=== PATIENT | female | born 1975 | race Caucasian/White ===

== ENCOUNTER 2025-01-22 15:29 | Outpatient (AMB) | payer OTHER, SELFPAY ==
--- NOTE | 2025-01-22 15:52 | MHC.OFFVIS ---
Intake Visit Reasons: 6m migraine [facility] Allergy (Unknown, Verified 01/22/25 15:56) Unknown Medication List - Last Reconciled 01/22/25 by Dory Wilson CNP albuterol sulfate mg inhalation Q4H PRN atorvastatin 10 mg PO DAILY budesonide-formoterol 160-4.5 mcg/actuation (Symbicort) 2 puffs inhalation BID crisaborole 2% (Eucrisa) topical BID PRN epinephrine IM levothyroxine mcg PO meclizine 25 mg PO DAILY mometasone 200 mcg/actuation (Asmanex HFA) 2 puffs inhalation BID montelukast 10 mg PO BEDTIME sumatriptan succinate mg PO topiramate 50 mg PO DAILY HPI Comments Details: 49-year-old [place] woman with asthma and migraine. She was doing okay. Migraines happened few times a month. Sumatriptan as needed usually helped. She had bad migraine earlier this week with visual aura and had to stay home from work. Triggers included change in barometric pressure. Sleep was not so good. [facility] Medical History (Updated 01/22/25 @ 15:57 by Dory Wilson CNP) Raynauds syndrome Hypothyroidism Eczema Asthma Review of Systems Const Denies chills, Denies daytime sleepiness, Reports difficulty sleeping, Denies fatigue, Denies fever(s), Denies frequent falls, Reports headache(s), Denies increased appetite, Denies poor appetite, Denies snoring, Denies weakness, Denies weight gain and Denies weight loss Eyes Denies loss of vision ENT Denies vertigo, Denies dizziness and Reports headache(s) Card Denies chest pain at rest, Denies chest pain with activity, Denies syncope, Denies leg edema and Denies palpitations Resp Denies snoring GI Denies constipation, Denies heartburn, Denies diarrhea and Denies nausea Denies urinary frequency, Denies urinary incontinence and Denies urinary urgency Musc Denies abnormal gait, Denies numbness and Denies tingling Skin/Breast Denies dry skin and Denies rash Neuro Denies abnormal gait, Denies vertigo, Denies dizziness, Denies syncope, Denies frequent falls, Reports headache(s), Denies lack of coordination, Denies loss of vision, Denies memory loss, Denies numbness, Denies restless legs, Denies seizure-like activity, Denies tingling, Denies paresthesias, Denies tremor(s) and Denies weakness Psych Denies anxiety, Denies depression, Denies auditory hallucinations, Denies memory loss, Denies visual hallucinations and Denies suicidal ideation Endo Denies fatigue and Denies palpitations Physical Exam Const Other: General Appearance:? normal, in no acute distress. Skin:? no rashes, no significant birthmarks. Heart:? S1, S2 normal, no murmurs. Lungs:? clear anteriorly and posteriorly. Extremities:? no edema. Psych:? alert, oriented, cognitive function intact, cooperative with exam. Neuro Other: Mental Status:?Normal attention, orientation, memory and affect.? Cranial Nerves:?Pupils are equal, round and reactive to light. External occular muscles are intact. Visual donato are full. Face is symmetrical. Facial sensations are normal. Tongue is midline. Palate elevates symmetrically. Shoulder shrugging is normal. Hearing to bedside conversation is normal. Sensory Exam:?....? Coordination:?No ataxia,?no titubation.? Gait Exam: Within normal limits. Extrapyramidal System:?No tremor, rigidity with normal facial expressions.? Pronator Drift:?Not present.? Involuntary Movements:?No tremors seen.? Speech:?Normal.? Assessment & Plan Assessment & Plan (1) Migraine with aura: Code(s): G43.109 - Migraine with aura, not intractable, without status migrainosus Category: Medical Qualifiers: Status migrainosus presence: without status migrainosus Intractability: not intractable Qualified Code(s): G43.109 - Migraine with aura, not intractable, without status migrainosus Plan: Continue topiramate 50mg 1 tablet at bedtime. Continue sumatriptan 50mg 1 tablet as needed for migraine. Continue meclizine 25mg 1 tablet as needed for dizziness. (2) Hemiplegic migraine: Code(s): G43.409 - Hemiplegic migraine, not intractable, without status migrainosus Category: Medical Qualifiers: Status migrainosus presence: without status migrainosus Intractability: not intractable Qualified Code(s): G43.409 - Hemiplegic migraine, not intractable, without status migrainosus Plan . Medications: New topiramate 50 mg PO BEDTIME 90 tabs 1RF 90 days Coding Level of Care Code Est Pt Level 4 (67446) Diagnoses Migraine with aura and without status migrainosus, not intractable G43.109 Status migrainosus presence: without status migrainosus Intractability: not intractable Hemiplegic migraine without status migrainosus, not intractable G43.409 Status migrainosus presence: without status migrainosus Intractability: not intractable
--- OUTSIDE RECORDS SUMMARY | 2025-01-22 17:51 | XMS_ITS | Clinical Summary ---
Author Organization [facility] [address] [place] [address] [place] [address] [place] [address] Phone Care Team Providers Care Wool Washer Name Role Phone Tracy Goel MD Primary Care Provider [phone] Allergies Active Allergy Reactions Criticality Noted Date Comments Bee Sting Kit 08/09/2024 Diclofenac Dizziness,Unknown Medium 05/17/2022 Gold Sodium Thiomalate 06/22/2022 Patient was allergy tested Nickel Unknown 06/22/2022 Patient was allergy tested Other Runny nose 09/03/2009 Phenyleph/Diphenhyd-Phe nyleph Other 01/16/2010 Hyper and jittery Medications multivitamin (MULTIPLE VITAMINS ORAL) Take by mouth. Active topiramate (TOPAMAX) 50 mg tablet Take 1 tablet (50 mg total) by mouth 1 (one) time each day. 03/27/20 23 Active albuterol 1.25 mg/3 mL nebulizer solution INHALE 1 VIAL VIA NEBULIZER EVERY 4 HOURS NEEDED FOR SHORTNESS OF BREATH 08/09/19 23 Active fluticasone propionate (FLONASE) 50 mcg/actuation nasal spray 1 [employer] by Each Nare route 2 Times Daily. 07/06/19 23 Active SUMAtriptan (IMITREX) 50 mg tablet TAKE 1 TABLET BY MOUTH NEEDED FOR MIGRAINE, REPEAT DOSE ONCE AFTER 2 HOURS IF NEEDED 01/20/20 22 Active montelukast (SINGULAIR) 10 mg tablet TAKE 1 TABLET BY MOUTH AT BEDTIME 08/05/19 22 Active albuterol HFA (PROAIR HFA ; PROVENTIL HFA ; VENTOLIN HFA) 90 mcg/actuation inhaler Inhale 2 Puffs into the lungs every 4 hours as needed for Cough, Wheezing or Shortness of Breath. 06/22/19 Active EPINEPHrine (EpiPen 2-Fredrick) 0.3 mg/0.3 mL injection INJECT THE CONTENTS OF 1 SYRINGE DIRECTED 06/08/19 Active pimecrolimus (ELIDEL) 1 % cream : APPLY TOPICALLY TO THE AFFECTED AREA 1 TO 2 TIMES DAILY NEEDED FOR ECZEMA Class: Historic Active meclizine (ANTIVERT) 25 mg tablet Take 1 tablet (25 mg total) by mouth. 10/29/19 25 Active Symbicort 160-4.5 mcg/actuation inhaler 11/17/19 25 Active cetirizine (ZyrTEC) 5 mg chewable tablet Chew 1 (one) time each day. Active glucosamine-ch ondroitin 500-400 mg tablet Take 1 tablet by mouth 3 (three) times a day. Active naproxen (EC NAPROSYN) 375 mg EC tablet Take 220 mg by mouth 1 (one) time each day. Do not crush, chew, or split. Active Asmanex HFA 200 mcg/actuation HFA aerosol inhaler inhaler 11/19/19 25 Active levothyroxine (SYNTHROID, LEVOTHROID) 75 mcg tablet TAKE 1 TABLET BY MOUTH EVERY MORNING BEFORE BREAKFAST AND 1/2 TABLET BY MOUTH ON SUNDAYS 82 tablet 1 12/17/19 25 Active atorvastatin (LIPITOR) 10 mg tablet Take 1 tablet (10 mg total) by mouth at bedtime. 90 tablet 01/22/20 25 Active atorvastatin (LIPITOR) 10 mg tablet TAKE 1 TABLET(10 MG) BY MOUTH AT BEDTIME 90 tablet 10/22/19 25 025 Discontinued Active Problems Problem Noted Date Diagnosed Date Pyelonephritis 02/08/2024 Eczema 03/29/2023 Hyperlipidemia 01/21/2022 Hypothyroidism 12/22/2016 Raynaud's phenomenon without gangrene 12/08/2016 Solitary pulmonary nodule 02/27/2014 Overview (02/08/2024): 4 mm, incidentally found on [facility] 2010; was recommended to have followup CT, but [facility] radiology dept apparently told her in 2011 no longer needed due to pt's low risk and due to small size of nodule Nephrolithiasis 10/04/2012 Overview (02/08/2024): CT at [facility] 10/03/12 - 4.5 mm distal left ureter calculus with left hydronephrosis and hydroureter; multifocal left nephrolithiasis Asthma 08/16/2010 Seasonal allergies 08/16/2010 Migraine 07/12/2007 Encounters Date Type Department Care Team Description 12/10/2024 Telephone Gastroenterology - [place] [address] [facility] [address] [place] [phone] Jessica Munoz MD 11/25/2024 Telephone Gastroenterology [facility] [address] [facility] [address] [place] [address] Jessica Munoz MD 11/19/2024 2:30 PM EDT Office Visit Adult Medicine [address] [phone] Kiki Antonio PA Mixed hyperlipidemia (Primary Dx); Colon cancer screening; Hypothyroidism due to acquired atrophy of thyroid; Moderate persistent asthma without complication; Seasonal allergies; Migraine without status migrainosus, not intractable, unspecified migraine type from Last 3 Months Immunizations Name Administration Dates Next Due Influenza Quadravalent, MDCK , 0.5ml, preservative free (Flucelvax) 6mo and older 02/17/2023,01/14/2022,01/07/2021 Influenza Quadravalent, MDCK , 0.5ml, with preservative (Flucelvax) 6mo and older 01/15/2017 Influenza trivalent, 0.5mL, preservative free (Fluarix; FluLaval; Fluzone) ages 6mo and older (Afluria) 3 years and older 02/09/2012 Influenza trivalent, with preservative (Fluzone; Afluria) 6mo and older 02/08/2020,12/21/2019,02/07/2019,2017,02/27/2014,02/24/2011 MMR, measles mumps and rubel la Live (Priorix; M-M-R II) 12mo and older 09/12/2018,12/11/1989,10/11/1979 PPD Test 11/07/2012,07/12/2007 Pfizer SARS-CoV-2 COVID-19, mRNA, LNP-S, preservative free 03/16/2021,09/02/2020 Pneumococcal conjugate 20 [facility] (Prevnar 20, PCV 20) 2mo and older 03/29/2023 Td Tetanus diptheria (Tdvax) 7yo and older 12/08/2016 Tdap Tetanus diptheria acell ular pertussis (Boostrix; Adacel) 7yo and older 06/23/2003 Surgical History Surgery Date Site/Laterality Comments WISDOM TOOTH EXTRACTION SCREENING MAMMOGRAM 06/29/2022 Bilateral Medical History Medical History Date Comments Pyelonephritis Migraine 07/12/2007 Vitamin A deficiency 02/18/[address] Titus walsh- Slightly low -may explain Nyctalopia Asthma, mild intermittent, well-controlled 08/16/2010 Nephrolithiasis 10/04/2012 : CT at [facility] 10/03/12 - 4.5 mm distal left ureter calculus with left hydronephrosis and hydroureter; multifocal left nephrolithiasis Raynaud's phenomenon without gangrene 12/08/2016 Seasonal allergies 08/16/2010 Solitary pulmonary nodule 02/27/2014 : 4 mm , incidentally found on [facility] CT 2010; was recommended to have followup CT, but [facility] radiology dept apparently told her in 2011 no longer needed due to pt's low risk and due to small size of nodule Subclinical hypothyroidism 12/22/2016 Eczema 03/29/2023 Family History Medical History Relation Name Comments Heart attack Father Cancer, Other / type,Hypertension, Stroke,Arthritis Arthritis Maternal Grandfather Stroke Brain cancer Maternal Grandmother 70s Arthrit is, breast cancer Arthritis Mother Raynauds, [place], p arkinsons disease Coronary artery disease Paternal Grandfather parkinsons disease Arthritis Paternal Grandmother Other: Raynauds Sister depression Colon cancer Neg Hx Ovarian cancer Neg Hx Relation Name Status Comments Father Alive Maternal Grandfather Maternal Grandmother 70s Mother Alive Paternal Grandfather Paternal Grandmother Sister Alive Social History Tobacco Use Types Packs/Day Years Used Date Smoking Tobacco: Never Smokeless Tobacco: Never Tobacco Cessation:Counseling Given: Not Answered Alcohol Use Standard Drinks/Week Comments Yes 0 (1 standard drink = 0.6 oz pur e alcohol) Comments No Sex and Gender Information Value Date Recorded Sex Assigned at Female 05/29/2024 2:23 PM EST Legal Sex Female 1:00 AM EST Gender Identity Female 05/29/2024 2:23 PM EST Sexual Orientation Straight 05/29/2024 2: 23 PM EST Obstetrics History * This document contains information received from the source organization and may not represent a complete record from that organization. Para Term AB IAB SAB Ectopic Multiple Livin g Live Births 2 1 1 1 1 1 Date Outcome GA Total Labor Labor/2nd/3rd Weight Sex Type Anes PTL Elizabeth A1 A5 Name Clin 1 2011 Term 37w 6d 15h 27m/ 2892 g (102 oz) F Vag-V acuum Local N Livin g 8 9 [facility] Delivery Location:[facility] Comments:Variable dece ls, prolonged second stage. Term Last Filed Vital Signs Vital Sign Reading Time Taken Comments Blood Pressure 119/76 11/19/2024 2:13 PM EDT Pulse 77 11/19/2024 2:13 PM EDT Temperature 36.2 C (97.1 F) 11/19/2024 2:13 PM EDT Respiratory Rate 14 11/19/2024 2:13 PM EDT Oxygen Saturation 91% 11/19/2024 2:13 PM EDT Inhaled Oxygen Concentration - - Weight 68.5 kg (151 lb) 11/19/2024 2:13 PM EDT Height 157.5 cm (5' 2 ) 11/19/2024 2:13 PM EDT Body Mass Index 27.62 11/19/2024 2:13 PM EDT Plan of Treatment Upcoming Encounters Date Type Department Care Team (Late st Contact Info) Description 02/21/2025 1:00 PM EDT Appointment [facility] [address] [place] [phone] Catalino Kay MD [address] [facility] [address] [place] [address] 08/16/2025 9:50 AM EDT Appointment Radiology Department - [address] [phone] 11/19/2025 3:00 PM EDT Office Visit Adult Medicine [facility] [address] [place], [place] [phone] Tracy Goel MD [address] [place], [place] Health Maintenance Due Date Last Done Comments Hepatitis B Vaccines (1 of 3 - 19+ 3-dose series) 1996 Colorectal Cancer Screening: Colonoscopy 04/09/2022 Social Influencers of Health Screening 04/09/2022 Depression Screening 05/01/2024 COVID-19 Vaccine (7 - Pfizer risk 2023- season) 2024 01/25/2024, 01/27/2023, 02/25/2022, Additional history exists Influenza Vaccine (#1) 2024 , 01/14/2022, 01/07/2021, Additional history exists Breast Cancer Screening 08/10/2026 08/11/19, 07/22/2023, 06/29/2022, Additional history exists DTaP,Tdap,and Td Vaccines (3 - Td or Tdap) 12/08/2026 12/08/2016, 06/23/2003 Cervical Cancer Screening: HPV 08/09/2029 08/09/2024, 07/02/2018 Cholesterol Screening (Lipid Panel) 12/06/2029 12/06/2024, 01/27/2024, 01/27/2024 RSV Immunization Adult Patients (1 - 1-dose 75+ series) 2052 HIV Screening Completed 07/26/2011 MMR Vaccines Completed 09/12/2018, 11/29, 10/11/1979 Pneumococcal Vaccine: Pediatrics (0 to 5 Years) and At-Risk Patients (6 to 49 Years) Completed 03/29/2023 Hepatitis C Screening Completed 04/05/2024 HIB Vaccines Aged Out No longer eligi ble based on patient's age to complete this topic HPV Vaccines Aged Out No longer eligi ble based on patient's age to complete this topic Hepatitis A Vaccines Aged Out No long er eligible based on patient's age to complete this topic IPV Vaccines Aged Out No longer eligi ble based on patient's age to complete this topic Meningococcal ACWY Vaccine Aged Out N o longer eligible based on patient's age to complete this topic Meningococcal B Vaccine Aged Out No l onger eligible based on patient's age to complete this topic RSV Immunization Patients Under 20 months Aged Out No longer eligible based on patient's age to complete this topic Varicella Vaccines Aged Out No longer eligible based on patient's age to complete this topic Procedures Procedure Name Priority Date/Time Associated Diagnosis Comments LIPID PANEL WITH REFLEX TO DIRECT LDL Routine 12/06/2024 7:39 AM EDT Mixed hyperlipidemia BASIC METABOLIC PANEL Routine 12/06/2024 7:39 AM EDT Hypothyroidism due to acquired atrophy of thyroid MG MAMMO DIGITAL SCREENING W GEN BILAT Routine 08/10/2024 9:54 AM EDT Encounter for screening mammogram for breast cancer HPV WITH REFLEX GENOTYPE Routine 08/09/2024 3:40 PM EDT Encounter for annual routine gynecological examination HEPATITIS C ANTIBODY Routine 04/05/2024 9:32 AM EST Need for hepatitis C screening test HIV SCREENING Routine 07/26/2011 from Last 3 Months or Most Recently Relevant to Health Maintenance Results * (ABNORMAL) Lipid panel with reflex to direct LDL (12/06/2024 7:39 AM EDT) Cholesterol 226(H) 0 - 200 mg/dL LAB CHEMISTRY METHOD 12/06/2024 10:48 AM EDT [facility] Triglycerides 85 0 - 150 mg/dL LAB CHEMISTRY METHOD 12/06/2024 10:48 AM EDT [facility] HDL 61 >=40 mg/dL LAB CHEMISTRY METHOD 12/06/2024 10:48 AM EDT [facility] LDL Calculated 148(H) 0 - 100 mg/dL LAB CHEMISTRY METHOD 12/06/2024 10:48 AM EDT [facility] Comment:Estimated LDL Calcul ated using equation: Total cholesterol - HDL cholesterol - (Triglycerides/5) VLDL Cholesterol Coy 17 mg/dL LAB CHEMISTRY METHOD 12/06/2024 10:48 AM EDT [facility] Non HDL Chol. (LDL+VLDL) 165(H) <145 mg/dL LAB CHEMISTRY METHOD 12/06/2024 10:48 AM EDT [facility] Chol/HDL Ratio 3.7 0.0 - 4.4 LAB CHEMISTRY METHOD 12/06/2024 10:48 AM EDT [facility] Blood Venous blood specimen / Unknown Venipuncture / Unknown 12/06/2024 7:39 AM EDT 12/06/2024 7:39 AM EDT us Kiki ZELAYA LAB BLOOD ORDERABLES Final Re sult [facility] [address] [place] [address], * Basic metabolic panel (12/06/2024 7:39 AM EDT) Sodium 139 133 - 145 mmol/L LAB CHEMISTRY METHOD 12/06/2024 10:46 AM [facility] Potassium 3.5 3.5 - 5.5 mmol/L LAB CHEMISTRY METHOD 12/06/2024 10:46 AM [facility] Chloride 107 96 - 110 mmol/L LAB CHEMISTRY METHOD 12/06/2024 10:46 AM [facility] CO2 29 21 - 32 mmol/L LAB CHEMISTRY METHOD 12/06/2024 10:46 AM [facility] Anion Gap 3 3 - 11 LAB CHEMISTRY METHOD 12/06/2024 10:46 AM [facility] Glucose 89 70 - 100 mg/dL LAB CHEMISTRY METHOD 12/06/2024 10:46 AM [facility] BUN 13 5 - 25 mg/dL LAB CHEMISTRY METHOD 12/06/2024 10:46 AM EDT [facility] Creatinine 0.64 0.50 - 1.10 mg/dL LAB CHEMISTRY METHOD 12/06/2024 10:46 AM EDT [facility] eGFR 110 >=60 mL/min/1. 73m2 LAB CHEMISTRY METHOD 12/06/2024 10:46 AM EDT [facility] Comment:Calculation based on the Chronic Kidney Disease Epidemiology Collaboration (CKD-EPI) equation refit without adjustment for race. BUN/Creatinine Ratio 20.3 LAB CHEMISTRY METHOD 12/06/2024 10:46 AM EDT [facility] Calcium 9.5 8.5 - 10.5 mg/dL LAB CHEMISTRY METHOD 12/06/2024 10:46 AM EDT [facility] Blood Venous blood specimen / Unknown Venipuncture / Unknown 12/06/2024 7:39 AM EDT 12/06/2024 7:39 AM EDT us Kiki ZELAYA LAB BLOOD ORDERABLES Final Re sult [facility] [address] [place] [address], * MG Mammo Digital Screening w Gen bilat (08/10/2024 9:54 AM EDT) Anatomical Region Laterality Modality Breast Bilateral Mammography 08/12/2024 5:48 PM EDT Impressions 08/12/2024 5:59 PM EDT 1. No mammographic evidence of malignancy 2. Heterogeneous breast parenchyma BI-RADS CATEGORY: 2 - BENIGN RECOMMENDATION: Screening bilateral mammogram is recommended in 1 year. Mammo Location: [facility], [address] [place] [address], [id number], . -------- FINAL REPORT -------- Dictated By: Lina Saunders Dictated Date: 08/12/2024 17:48 ET Assigned Physician: Lina Saunders Reviewed and Electronically Signed By: Lina Saunders Signed Date: 08/12/2024 17:59 ET Workstation ID: [id number] Transcribed By: Self Edit Transcribed Date: 08/12/2024 17:48 ET Narrative 08/12/2024 5:59 PM EDT A BILATERAL DIGITAL 3D SCREENING MAMMOGRAPHY HISTORY: Routine screening. COMPARISON: Multiple priors dating back to 04/18/2020 Technique: Bilateral full field digital mammography (3D) was performed using standard CC and MLO projections , left breast exaggerated CC CAD was used to evaluate this mammogram. FINDINGS: Right: No suspicious masses, groups of microcalcification or areas of architectural distortion identified. Stable typically benign parenchymal asymmetries. Left: No suspicious masses, groups of microcalcification or areas of architectural distortion identified. Stable typically benign parenchymal asymmetries. BREAST DENSITY: C - The breasts are heterogeneously dense which may obscure small masses. Procedure Note Lina Saunders MD - 08/12/2024 A BILATERAL DIGITAL 3D SCREENING MAMMOGRAPHY HISTORY: Routine screening. COMPARISON: Multiple priors dating back to 04/18/2020 Technique: Bilateral full field digital mammography (3D) was performedusing standard CC and MLO projections , left breast exaggerated CC CAD was used to evaluate this mammogram. FINDINGS: Right: No suspicious masses, groups of microcalcification or areas ofarchitectural distortion identified. Stable typically benign parenchymalasymmetries. Left: No suspicious masses, groups of microcalcification or areas ofarchitectural distortion identified. Stable typically benign parenchymalasymmetries. BREAST DENSITY: C - The breasts are heterogeneously dense which mayobscure small masses. IMPRESSION: 1. No mammographic evidence of malignancy 2. Heterogeneous breast parenchyma BI-RADS CATEGORY: 2 - BENIGN RECOMMENDATION: Screening bilateral mammogram is recommended in 1 year. Mammo Location: [facility], [address] [place] [address], [phone], . -------- FINAL REPORT -------- Dictated By: Lina Saunders Dictated Date: 08/12/2024 17:48 ET Assigned Physician: Lina Saunders Reviewed and Electronically Signed By: Lina Saunders Signed Date: 08/12/2024 17:59 ET Workstation ID: [id number] Transcribed By: Self Edit Transcribed Date: 08/12/2024 17:48 ET Tracy Goel MD IMG BI PROCEDURES Final Result * HPV with reflex genotype (08/09/2024 3:40 PM EDT) HPV Negative Negative LAB MICROBIOLOGY METHOD 08/13/2024 1:32 PM EDT [facility] Brushing/Spatula Cervix uteri structure / Unknown 08/09/2024 3:40 PM EDT 08/13/2024 5:51 AM EDT Bertha Conner CNM LAB MOLECULAR DIAGNOSTICS ORDER EVE Final Result Performing Organization Address [facility]/ZIP Co de Phone Number [facility] [address] [place] [address], * Hepatitis C antibody (04/05/2024 9:32 AM EST) [facility] Hepatitis C Antibody Negative Negative LAB CHEMISTRY METHOD 04/05/2024 1:05 PM EST [facility] Blood Venous blood specimen / Unknown Venipuncture / Unknown 04/05/2024 9:32 AM EST 04/05/2024 9:33 AM EST Tracy Goel MD LAB BLOOD ORDERABLES Final Resul t [facility] [address] [place] [address], [place] [phone] * Hm HIV Screening (07/26/2011) [facility] HIV Screening ABSTRACTED Historical Provider HEALTH MAINTENANCE Final Result from Last 3 Months or Most Recently Relevant to Health [place] [id number] [facility] Care Teams Wool Washer Relationship Specialty Start Date End Date Tracy Goel MD [address] [place] [phone] PCP - General Internal Medicine 09/29/20
--- OUTSIDE RECORDS SUMMARY | 2025-01-22 17:51 | XMS_ITS ---
Author Name [facility] Organization Unknown Care Team Organization Name Specialty Phone Email Start Date End Da te [facility] Tracy Goel Primary Care 03/08/2022 4
== END 2025-01-22 16:14 | disposition home or self-care (01) ==
LOC: HO.HSM 15:30
PROVIDERS: PCP Internal Medicine; Referring Provider Internal Medicine; Visit Provider Registered Nurse
DX: G43.109 Migraine with aura, not intractable, without status migrainosus (principal); G43.409 Hemiplegic migraine, not intractable, without status migrainosus
CPT/HCPCS: 99214